=== PATIENT | female | born 1945 | race Caucasian/White ===

== ENCOUNTER → 2016-08-15 | Outpatient (CLI) | payer MEDICARE | LOC: LAB 15:19 | DX: I10 Essential (primary) hypertension (principal) ==

== ENCOUNTER → 2016-09-24 | Outpatient (CLI) | payer MEDICARE | LOC: LAB 10:26 | DX: B35.1 Tinea unguium (principal) ==

== ENCOUNTER → 2016-11-01 | Outpatient (CLI) | payer MEDICARE | LOC: LAB 12:29 | DX: B35.1 Tinea unguium (principal) ==

== ENCOUNTER → 2017-01-09 | Outpatient (CLI) | payer MEDICARE | LOC: LAB 15:38 | DX: B35.1 Tinea unguium (principal) ==

== ENCOUNTER → 2017-10-30 | Outpatient (CLI) | payer MEDICARE ==
[2017-10-30 10:11] LABS: BASO # 0.1 (0.02-0.10); EOS # 0.5 (0.04-0.40); EOS % 7.2 % (1.0-5.0); HEMATOCRIT 39.9 % (37.0-47.0); HEMOGLOBIN 12.8 g/dL (12.5-16.0); LYMPH# 1.8 (1.50-4.00); MEAN CELL VOLUME 82 fl (78-100); MEAN CORPUSCULAR HEMOGLOBIN 26 pg (27-31); MEAN CORPUSCULAR HGB CONC 32 g/dL (33-37); MEAN PLATELET VOLUME 11.9 fl (7.4-10.4); MONO # 0.7 (0.20-0.80); NEU # 4.2 (1.40-6.50); PLATELET COUNT 266 K/mm3 (130-400); RED BLOOD COUNT 4.86 M/mm3 (4.10-5.30); RED CELL DISTRIBUTION WIDTH 17.1 % (11.5-14.5); WHITE BLOOD COUNT 7.3 K/mm3 (4.8-10.8)
[2017-10-30 10:51] LABS: ALBUMIN 3.9 g/dL (3.5-5.0); BUN/CREATININE RATIO 15.7 (6.0-26.0); POTASSIUM 3.4 mmol/L (3.6-5.0); TOTAL BILIRUBIN 0.6 mg/dL (0.2-1.3); TOTAL PROTEIN 7.1 g/dL (6.3-8.2)
== END ==
LOC: LAB 09:41
PROVIDERS: Nurse Practitioner Family
DX: Z13.1 Encounter for screening for diabetes mellitus (principal); Z13.220 Encounter for screening for lipoid disorders; I10 Essential (primary) hypertension; R73.02 Impaired glucose tolerance (oral)

== ENCOUNTER → 2017-12-18 | Outpatient (CLI) | payer MEDICARE | LOC: MAMMO 11-20 13:00 | DX: Z12.31 Encounter for screening mammogram for malignant neoplasm of breast (principal); Z98.890 Other specified postprocedural states; Z00.00 Encounter for general adult medical examination without abnormal findings; Z78.0 Asymptomatic menopausal state; I10 Essential (primary) hypertension ==

== ENCOUNTER → 2019-05-28 | Outpatient (CLI) | payer MEDICARE ==
[2019-05-28 16:12] LABS: EOS # 0.5 (0.04-0.40); EOS % 6.3 % (1.0-5.0); HEMOGLOBIN 11.6 g/dL (12.5-16.0); LYMPH# 1.9 (1.50-4.00); MEAN CELL VOLUME 78 fl (78-100); MEAN CORPUSCULAR HGB CONC 31 g/dL (33-37); MEAN PLATELET VOLUME 11.7 fl (7.4-10.4); MONO # 0.7 (0.20-0.80); NEU # 4.2 (1.40-6.50); PLATELET COUNT 278 K/mm3 (130-400); WHITE BLOOD COUNT 7.4 K/mm3 (4.8-10.8)
[2019-05-28 16:16] LABS: MEAN CORPUSCULAR HEMOGLOBIN 24 pg (27-31); RED CELL DISTRIBUTION WIDTH 18.4 % (11.5-14.5)
[2019-05-28 16:24] LABS: ALBUMIN 3.8 g/dL (3.4-4.8); POTASSIUM 3.6 mmol/L (3.5-5.1)
[2019-05-28 16:27] LABS: TOTAL PROTEIN 6.8 g/dL (6.2-8.1)
[2019-05-28 16:29] LABS: TOTAL BILIRUBIN 0.4 mg/dL (0.2-1.2)
[2019-05-28 17:01] LABS: D-DIMER 0.56 mg/L FEU (0.15-0.50)
== END ==
LOC: LAB 15:40
PROVIDERS: Physician Assistant
DX: M25.571 Pain in right ankle and joints of right foot (principal); M79.604 Pain in right leg

== ENCOUNTER → 2019-06-11 | Outpatient (CLI) | payer MEDICARE | LOC: RAD 06-04 15:00 | DX: M25.571 Pain in right ankle and joints of right foot (principal) ==

== ENCOUNTER → 2020-06-20 | Outpatient (CLI) | payer MEDICARE | LOC: MAMMO 12:34 | DX: Z12.31 Encounter for screening mammogram for malignant neoplasm of breast (principal); Z98.890 Other specified postprocedural states ==

== ENCOUNTER → 2023-05-09 | Outpatient (CLI) | payer MEDICARE ==
[2023-05-09 11:09] LABS: CALCIUM 11.1 mg/dL (8.3-10.5)
[2023-05-09 11:10] LABS: TOTAL PROTEIN 7.2 g/dL (6.2-8.1)
[2023-05-09 11:12] LABS: TOTAL BILIRUBIN 0.4 mg/dL (0.2-1.2)
[2023-05-09 11:21] LABS: D-DIMER 0.55 mg/L FEU (0.15-0.50)
== END ==
LOC: LAB 10:26
PROVIDERS: Physician Assistant
DX: M79.605 Pain in left leg (principal); R60.0 Localized edema

== ENCOUNTER → 2023-05-10 | Outpatient (CLI) | payer MEDICARE | LOC: RAD 10:57 | DX: M79.604 Pain in right leg (principal) ==